=== PATIENT | female | born 1965 ===

== ENCOUNTER → 2018-01-08 13:33 | Outpatient (REF) | payer OTHER, SELFPAY ==
[2018-01-10 12:33] LABS: QuantiFERON TB NEGATIVE (Negative)
== END ==
LOC: LAB 13:33
PROVIDERS: Visit Provider Family Medicine
DX: Z11.1 Encounter for screening for respiratory tuberculosis (principal)
CPT/HCPCS: 36415; 86480

== ENCOUNTER → 2018-04-26 13:29 | Outpatient (REF) | payer OTHER, SELFPAY ==
[2018-04-26 14:04] LABS: Hematocrit 35.2 % (36-46); Hemoglobin 11.1 g/dL (12.0-16.0); Mean Corpuscular HGB Conc 31.6 % (30-36); Mean Corpuscular Hemoglobin 22.2 PG (26-34); Mean Corpuscular Volume 70.3 fL (80-100); Platelet Count 270 X10^3/uL (150-400); Red Blood Cell Count 5.01 X10^6/uL (4.0-5.2); Red Cell Distribution Width 15.8 % (11.6-14.8); White Blood Cell Count 4.7 X10^3/uL (4.5-11.0)
[2018-04-26 14:05] LABS: Add Manual Diff / Slide Review YES
[2018-04-26 14:17] LABS: Neutrophils Absolute Manual 940 /uL (3000-5900); Total Cells Counted 100
[2018-04-26 14:20] LABS: Anisocytosis 1+; Hypochromasia 1+; Microcytosis 1+; Target Cells 2+
[2018-04-26 14:47] LABS: Alanine Aminotransferase 25 IU/L (9-52); Albumin 4.4 g/dL (3.5-5.0); Albumin Globulin Ratio 1.6 (1.0-2.8); Alkaline Phosphatase 53 U/L (38-126); Aspartate Aminotransferase 23 IU/L (14-36); Bilirubin Total 0.9 mg/dL (0.2-1.3); Blood Urea Nitrogen 21 mg/dL (7-17); Calcium 9.6 mg/dL (8.4-10.2); Carbon Dioxide 27 mmol/L (22-32); Chloride 104 mmol/L (98-107); Cholesterol 159 mg/dL (140-199); Estimated Glomerular Filt Rate > 60.0 mL/min (>60); Globulin 2.8 g/dL (1.7-4.1); Glucose 90 mg/dL (70-100); HDL Cholesterol 46 mg/dL (40-60); HEMOLYSIS 17 (0-50); LDL Cholesterol Calculated 94 mg/dL (<100); Potassium 4.2 mmol/L (3.4-5.1); Sodium 141 mmol/L (137-145); Total Protein 7.2 g/dL (6.3-8.2); Triglycerides 93 mg/dL (35-150)
== END ==
LOC: LAB 13:29
PROVIDERS: Visit Provider Family Medicine
DX: Z23 Encounter for immunization (principal); B34.9 Viral infection, unspecified
CPT/HCPCS: 36415; 80053; 80061; 85025; 86765